=== PATIENT | female | born 1955 | race Caucasian/White ===

== ENCOUNTER 2022-05-28 17:54 | Emergency (ER) | payer OTHER ==
[~2022-05-28] VITALS: Ht 160 cm; Wt 54.4 kg
[2022-05-28 17:55] VITALS: BP_SYST 114
[2022-05-28] MEDS ORDERED: NACL 0.9% 1,000 ML IV ONE (18:15)
--- NOTE | 2022-05-28 18:46 | NUR ---
FIRST CONTACT WITH PT, LAYING ON BED, AAOX3, STATES SHE HAD A SEIZURE, WITNESSED BY HER SISTER 30 MIN ROBOTIC TECHNICIAN, TONIC CLONIC, REPORTS TAKING ALL HER MEDS PRESCRIBED. PT BIBA FROM HOME. PT BIT TONGUE, BLEEDING CONTROLLED. IV SL TO LEFT HAND, IV FLUIDS STARTED ORDERED. SEIZURE PRECAUION IN PPLACE, CLOSE TO NURSING STATION, WILL CONT TO MONITOR. SISTER NOW AT BEDSIDE.
--- NOTE | 2022-05-28 18:54 | NUR ---
Pt notes left pectoral with Vasal Nerve stimulator placement.
[2022-05-28 19:28] LABS: BASOPHILS % (AUTO) 0.2 % (0.0-2.0); EOSINOPHILS % (AUTO) 0.9 % (0.0-4.0); HEMOGLOBIN 11.2 g/dL (12.0-16.0); LYMPHOCYTES # (AUTO) 0.5 K/uL (1.0-5.5); LYMPHOCYTES % (AUTO) 11.4 % (20.5-51.5); MEAN CORPUSCULAR HEMOGLOBIN 34 pg (27-31); MEAN CORPUSCULAR HGB CONC 34 % (32-36); MEAN CORPUSCULAR VOLUME 101 fL (79.0-98.0); MONOCYTES # (AUTO) 0.4 K/uL (0.0-1.0); MONOCYTES % (AUTO) 9.7 % (1.7-9.3); NEUTROPHILS # (AUTO) 3.2 K/uL (1.8-7.7); NEUTROPHILS % (AUTO) 77.8 % (40.0-70.0); PLATELET COUNT (AUTO) 133 K/uL (130-430); RED BLOOD CELL COUNT(AUTO) 3.27 MIL/uL (4.2-6.2); RED CELL DISTRIBUTION WIDTH 13.2 % (9.0-15.0); WHITE BLOOD COUNT (AUTO) 4.1 K/uL (4.8-10.8)
[2022-05-28 19:35] LABS: CALCIUM 8.4 mg/dL (8.4-11.0); CREATININE 0.93 mg/dL (0.55-1.30); POTASSIUM 3.3 mmol/L (3.5-5.1)
[2022-05-28 19:47] LABS: ALBUMIN 3.6 g/dL (3.4-4.8); TOTAL BILIRUBIN 0.4 mg/dL (0.0-1.0)
[2022-05-28 21:24] LABS: BILIRUBIN,URINE NEGATIVE (NEGATIVE); BLOOD, URINE 1+ (NEGATIVE); CLARITY/URINE CLEAR (CLEAR); COLOR,URINE YELLOW (YELLOW); GLUCOSE,URINE NEGATIVE (NEGATIVE); KETONES,URINE NEGATIVE (NEGATIVE); LEUKOCYTE ESTERASE ,URINE NEGATIVE (NEGATIVE); NITRITE, URINE NEGATIVE (NEGATIVE); PH,URINE 6.5 (5.0-8.0); PROTEIN URINE NEGATIVE (NEGATIVE); UROBILINOGEN,URINE 0.2 (0.2-1.0)
[2022-05-28 21:33] LABS: BARBITURATE, URINE NEGATIVE (NEG <=200); BENZODIAZEPINE, URINE NEGATIVE (NEG <=150); CANNABINOID, URINE NEGATIVE (NEG <=50); COCAINE, URINE NEGATIVE (NEG <=150); METHAMPHETAMINES SCREEN,URINE NEGATIVE (NEG <=500); OPIATE, URINE NEGATIVE (NEG <=100); PHENCYCLIDINE SCREEN,URINE NEGATIVE (NEG <=25); UR TRICYCLIC ANTIDEPRESSANTS NEGATIVE (NEG <=300); URINE AMPHETAMINE NEGATIVE (NEG <=500); URINE METHADONE NEGATIVE (NEG <=200); URINE OXYCODONE SCREEN NEGATIVE (NEG <=100); URINE PROPOXYPHENE SCREEN NEGATIVE (NEG <=300)
[2022-05-28 21:37] LABS: BACTERIA,URINE None Seen /HPF (None Seen); MUCUS,URINE None Seen /LPF (None Seen); RBC,URINE 0-3 /HPF (0-3); WBC,URINE NONE SEEN /HPF (0-3)
[2022-05-28] MEDS ORDERED: LORA-258 PO ×2 (21:39→21:42)
--- NOTE | 2022-05-28 22:02 | NUR ---
ANA ALBERTO. RECIEVED REPORT FROM WAQAS GARCIA. PT IS AOX4 AMBULATORY, ON SZ PRECAUTIONS. PT OKD TO BE dcD
[2022-05-28 22:33] VITALS: BP_SYST 146
--- NOTE | 2022-05-28 22:35 | NUR ---
ANA ALBERTO. PT IDSCHARGED TO HOME. ATIVAN PERSCRIPTED AND FOLLOW UP WITH PRIMARY. pT IS AOX4 AND PT AMBULATES TO AUTO
== END 2022-05-28 22:33 | disposition home or self-care (01) ==
LOC: SED 17:54
DX: R56.9 Unspecified convulsions (principal); F10.239 Alcohol dependence with withdrawal, unspecified; Y90.6 Blood alcohol level of 120-199 mg/100 ml; Z79.899 Other long term (current) drug therapy
CPT/HCPCS: 99285; 96360; 71045; 80307; 80053; 85025; 36415; 93005; 81000; J7030